=== PATIENT | male | born 1955 | race African-American/Black ===

== ENCOUNTER → 2025-01-16 | Day surgery (SDC) | payer MEDICARE ==
[2025-01-13 12:30] LABS: BASOPHILS % 0.6 % (0.0-1.0); EOSINOPHILS % 4.3 % (0.0-6.0); LYMPHOCYTES % 23.8 % (18.0-39.1); MONOCYTES % 10.9 % (4.4-11.3); NEUTROPHILS % 60.1 % (38.7-80.0); RED CELL DISTRIBUTION WIDTH 14.2 % (11.7-14.4)
[2025-01-13 12:55] LABS: EST GLOMERULAR FILTRATION RATE 94.0 ML/MIN (>=60)
[~2025-01-16] MED LIST: ACETAMINOPHEN 1000 MG/100 ML 100 ML IV ONE; ACETAMINOPHEN325 M1 PO; AMLODIPINE BESY10 MG PO; ARICEPT5 MG PO; ATORVASTATIN CA20 MG PO; CEFAZOLIN SODIUM 2 GM ONE; DEXAMETHASONE SOD PHOS INJ 4 MG/ML SDV ONE; DICYCLOMINE HCL10 MG PO; DOXYCYCLINE HY100 MG PO; FARXIGA10 MG PO; FENTANYL CITRATE/PF 100MCG/2 ML INJ ONE; GLIPIZIDE5 MG PO; HYDROCHLOROTHIA25 MG PO; HYDROCODON-ACE1 EAC9 PO; KETOCONAZOLE15 GM TOP; LACTATED RINGER'S 1,000 ML ONE; LANTUS 3ML100 UNITS/ SQ; LEVETIRACETAM500 MG PO; LIDOCAINE HCL 2% LOCAL INJ 5 ML SDV VIAL INJ ONE; LOSARTAN POTASS25 MG PO; MELOXICAM7.5 MG PO; METFORMIN HCL500 M2 PO; MIDAZOLAM HCL 2 MG/2 ML VIAL ONE; NEURONTIN100 MG PO; ONDANSETRON HCL INJ 2MG/ML 2ML 2 MG/ML VIAL ONE; PANTOPRAZOLE SO40 MG PO; PROPOFOL IV EMULSION 10 MG/ML 20 ML VIAL ONE; TIZANIDINE HCL4 M1 PO
[2025-01-16 12:27] VITALS: TEMP 97.9
[2025-01-16] MEDS: HYDROMORPHONE 1MG/1ML INJ ONE ×2 (12:38→12:58)
[2025-01-16 14:15] VITALS: BP 158/73; PULSE 50; RESP 18; O2SAT 97
== END | disposition home or self-care (01) ==
LOC: OR 08:20
PROVIDERS: ATTEND Podiatrist Foot Surgery
DX: E11.621 Type 2 diabetes mellitus with foot ulcer (principal); L97.518 Non-pressure chronic ulcer of other part of right foot with other specified severity; G40.909 Epilepsy, unspecified, not intractable, without status epilepticus; Z01.810 Encounter for preprocedural cardiovascular examination; Z01.812 Encounter for preprocedural laboratory examination; Z01.818 Encounter for other preprocedural examination; Z79.899 Other long term (current) drug therapy; Z87.891 Personal history of nicotine dependence
CPT/HCPCS: 15004; 15275; 36415 ×2; 71046; 80048; 82948; 85025; 87071; 87075; 87186; 87205; 88304; 93005; J0131; J1100; J1171; J2003; J2250; J2405; J2704; J3010; J7121; Q4104